=== PATIENT | female | born 1970 ===

== ENCOUNTER → 2016-05-06 | Outpatient (CLI) | payer OTHER ==
--- NOTE | 2016-05-06 10:04 | MA ---
Screening Digital Mammogram with Digital Breast Tomosynthesis Clinical Indications: Routine screening. Technique: Standard cephalocaudal projections are obtained. Digital breast tomosynthesis was perform ed in the MLO projection with reconstruction at 1.0 mm slice thickness and composite MLO views recons tructed. This examination is processed by the CAD computer aided detection system. Comparison: October 27, 2014; May 31, 2013. Breast density: D; The breasts are extremely dense, which lowers the sensitivity of mammography. Findings: CAD was reviewed. There are no new masses, new clusters of microcalcifications, or significant axillary lymphadenopathy . Impression: Negative mammogram. BI-RADS 1. Recommendation: Routine screening mammogram is recommended in one year. The patient is scheduled for limited ultrasound of the right breast later today secondary to small hypoechoic nodule seen on prio r outside imaging. Dense mammographic pattern limits the sensitivity of mammography in this patient. If there is a clini lady palpable abnormality, recommend additional imaging with ultrasound if clinically indicated. [facility] will send a result letter to the patient. Negative mammography should not preclude additional workup of a clinically suspicious finding. The patient's information is entered into a reminder system with a target due date for her next mammo gram.
--- NOTE | 2016-05-06 12:14 | US ---
Ultrasound right breast History: Probably benign nodule right breast and dilated retroareolar ducts on the left with debris f rom outside prior ultrasound study from [place], [place]. Followup evaluation. Findings: Right breast: In the 12 o'clock position of the right breast about 1 cm from the nipple there is a fa t lobule that appears to correspond with probably benign nodule previously imaged at ultrasound. This was compressible and is more compatible with fat lobule within denser breast tissue. This has a magdiel gn appearance. No solid or cystic masses are seen within the right breast tissue. Benign lymph nodes are also noted in the right axilla. Left breast: No significant solid or cystic mass is seen on the left. There are some dilated ducts on ce again noted in the retroareolar location of the left breast. Internal debris is identified within the ductal system. There is no evidence of internal color flow enhancement. Benign lymph nodes are no gita in the left axilla. Impression: 1. The previously identified nodule 12 o'clock position right breast periareolar location about 1 cm from the nipple has a benign appearance on today's imaging compatible with a lobule of fat within den ser breast tissue. No additional imaging followup is felt to be necessary of this finding. 2. Dilated ducts with debris once again noted retroareolar location on the left. Benign findings. BI-RADS 2 Routine annual mammographic followup recommended. The results of this study were reviewed with the patient.
== END ==
LOC: FIMAGING 09:20
PROVIDERS: ATTEND Nurse Practitioner
DX: Z03.89 Encounter for observation for other suspected diseases and conditions ruled out (principal)
CPT/HCPCS: G0202

== ENCOUNTER → 2017-06-28 | Outpatient (CLI) | payer OTHER | LOC: FIMAGING 07:45 | PROVIDERS: ATTEND Advanced Practice Midwife | DX: Z12.31 Encounter for screening mammogram for malignant neoplasm of breast (principal); Z80.3 Family history of malignant neoplasm of breast ==